=== PATIENT | male | born 1990 | race Caucasian/White ===

== ENCOUNTER 2023-12-20 09:40 | Emergency (ER) | payer BC ==
[~2023-12-20] VITALS: Ht 188 cm; Wt 82.8 kg
[2023-12-20 10:12] LABS: BASOPHILS 0.4 % (0-2); EOSINOPHILS 1.9 % (0-6); HEMATOCRIT 40.9 % (35.0-50.0); HEMOGLOBIN 13.5 g/dL (12.0-18.0); LYMPHOCYTES 34.7 % (24-44); MCH 29.3 (27-36); MCV 88.9 fl (81-99); MONOCYTES 5.3 % (0-12); NEUTROPHILS 57.7 % (39-80); PLATELET COUNT 251 K/uL (140-440); RDW 13.4 (10.5-15.0)
[2023-12-20 10:28] LABS: ALBUMIN 3.7 g/dL (3.4-5.0); ALBUMIN/GLOBULIN RATIO 1.06 (1.1-2.4); ANION GAP 13.2 (7-21); BILIRUBIN, TOTAL 0.5 ng/dL (0.2-1.0); BUN/CREATININE RATIO 12.67 (6.0-28.6); CALCIUM 8.9 mg/dL (8.5-10.1); CREATININE, SERUM 0.71 mg/dL (0.70-1.30); POTASSIUM 4.2 mmol/L (3.5-5.1); PROTEIN, TOTAL 7.2 g/dL (6.4-8.2)
[2023-12-20 11:43] VITALS: BP 116/82
--- NOTE | 2023-12-20 23:31 | EKG ---
[facility] [address] [facility] [place] [address] Signed Normal sinus rhythm Normal ECG Confirmed by Luca Zaragoza M.D. ([id number]) on 12/20/2023 11:31:34 PM Electronically Signed By: LUCA ZARAGOZA MD 12/20/23 233 PATIENT NAME: NURYSDEWAYNE ROBERT Electrocardiogram DATE OF : 89 PHYSICIAN: LUCA ZARAGOZA MD REPORT #: [id number] REPORT IS CONFIDENTIAL AND NOT TO BE RELEASED WITHOUT AUTHORIZATION
== END 2023-12-20 11:41 | disposition home or self-care (01) ==
LOC: ED 09:40
PROVIDERS: Emergency Medicine
DX: R07.89 Other chest pain (principal)
CPT/HCPCS: 36415; 80053; 84484; 85025; 93005; 93010